=== PATIENT | male | born 1955 | race Two or more races ===

== ENCOUNTER 2023-11-25 10:29 | Outpatient (AMB) | payer BC, SELFPAY ==
--- NOTE | 2023-11-25 11:25 | MHC.OFFWIV ---
Intake Vital Signs 11/25/23 11:38 Height 5 ft 8 in Weight 209 lb BMI 31.8 BP 124/70 Blood Pressure Location Rt brachial Pulse 78 Pulse Source Pulse Oximeter Temp 98.6 F Temp Source Oral Pulse Oximetry (%) 97 Oxygen Delivery Method Room Air Intake Visit Reasons: [employer] BP stuffy nose short of breath [id number] Intake Note: Pt is here c/o stuffy nose, SOB and diarrhea since last night. Patient Tobacco Use Status: Never used Tobacco Allergies No Known Allergies Allergy (Verified 11/25/23 11:25) Do you need a note to return to daycare/school/sports/work: Yes HPI HPI Comments History of Present Illness Details Patient is a 68-year-old male in today for sick visit. He has a past medical history significant for coronary artery bypass graft x4, atrial fibrillation. Patient states that for the past couple of weeks he has had symptoms of sore throat, cough, headache, chest congestion. He states that last night while he was lying in bed he developed some shortness of breath, and had 2 episodes of diarrhea. Patient states that those symptoms have resolved this morning. Denies chest pain, numbness, dyspnea on exertion, nausea, vomiting. PFSH Social History Patient Tobacco Use Status: Never used Tobacco Review of Systems Const Details: Constitutional : No Weight loss, No Fever, No Chills, No Fatigue, No Malaise ENT/Mouth : Admits sore throat, No Rhinorrhea, No ear pain Eyes: No Eye Pain, No Swelling, No Redness Cardiovascular : No Chest Pain, Admits intermittent SOB, No Dyspnea on Exertion, No Orthopnea, No Edema, No Palpitations Respiratory : Admits Cough, No Sputum, No Wheezing Gastrointestinal : No Nausea, No Vomiting, Admits two episodes of Diarrhea, No Constipation, No abdominal Pain, No Hematochezia, No Melena Genitourinary : No Dysuria, No Urinary Frequency, No Hematuria, Musculoskeletal : No joint pain, No Myalgias, No Joint Swelling Skin : No Skin Lesions, No rash Neuro : No Weakness, No Numbness, No Dizziness, No Headache Psych : No Anxiety/Panic, No Depression Heme/Lymph: No Bruising, No Bleeding,No Lymphadenopathy Endocrine : No Polyuria, No Polydipsia All other systems reviewed and are negative Physical Exam Vital Signs: Last Vital Signs Temp 98.6 F 11/25/23 11:38 Pulse 78 11/25/23 11:38 BP 124/70 11/25/23 11:38 Pulse Ox 97 11/25/23 11:38 Oxygen Delivery Method Room Air 11/25/23 11:38 BMI result Body Mass Index 31.8 Vital signs reviewed stable Const Other: Appearance: Alert.? Oriented X3.? No acute distress.? Head: Normocephalic, atraumatic Eyes: Pupils equal, round and reactive to light.? ENT: Pharynx ertythema. TM intact and pearly acevedo. Neck: Normal inspection.? Neck supple.?Full ROM. CVS: EK performed, patient in AFIB.? Pulses normal.? Respiratory: No respiratory distress.? Slight expiratory wheeze.? Neuro: Oriented X 3.? No motor deficit.? No sensory deficit. CN 2-12 intact Assessment & Plan Assessment & Plan (1) Upper respiratory infection: Comment: Patient had BNP, CMP, CBC drawn. Patient had in office EKG which demonstrated AFib, not new. Patient had x-ray of the chest will get back to him with results. Will put patient on prednisone and benzonatate to be taken as directed. Patient has been educated on signs of worsening symptoms when to return to the walk-in or when to present to the ED. 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 Code(s): J06.9 - Acute upper respiratory infection, unspecified Qualifiers: URI type: unspecified URI Qualified Code(s): J06.9 - Acute upper respiratory infection, unspecified Plan: Take your medications as prescribed. If you were prescribed antibiotics today, it is important that you take your medication to their entirety, do not skip any doses, do not finish them early. Follow-up with your primary care provider this week. Return to the emergency department with new or worsening symptoms. Such as fevers, chills, chest pain, shortness of breath, nausea, vomiting, dizziness, headache, vision changes, lethargy In case of emergency call 911 Plan Follow-up with PCP Orders: Orders Complete Blood Count Auto Diff Today Z13.0 - Encounter for screening for diseases of the blood and blood-forming organs and certain disorders involving the immune mechanism Comprehensive Met. Panel Today Z91.89 - Other specified personal risk factors, not elsewhere classified XR chest 2V Today R06.02 - Shortness of breath AMB EKG-In Office Today R06.02 - Shortness of breath SARS-CoV2/FLU/RSV Today J06.9 - Acute upper respiratory infection, unspecified B Type Natriuretic Peptide Today R06.02 - Shortness of breath Medications: New prednisone 20 mg PO BID 10 tabs 0RF benzonatate 100 mg PO BID PRN 20 caps 0RF cough Coding Level of Care Code Est Pt Level 3 (43820) Diagnoses Upper respiratory tract infection, unspecified type J06.9 URI type: unspecified URI Time Spent (min) 25
[2023-11-25 11:38] VITALS: BP 124/70; PULSE 78; TEMP 37; O2SAT 97; BMI 31.8
== END 2023-11-25 12:55 | disposition home or self-care (01) ==
PROVIDERS: Visit Provider Nurse Practitioner Primary Care
DX: J06.9 Acute upper respiratory infection, unspecified (principal)
CPT/HCPCS: 99214

== ENCOUNTER 2023-11-25 12:16 | Outpatient (REF) | payer BC, SELFPAY ==
--- NOTE | ~2023-11-25 | XR_ITS ---
EXAMINATION: XR CHEST CLINICAL INFORMATION: Shortness of breath. COMPARISON: None available. TECHNIQUE: 2 views of the chest were obtained. FINDINGS: No airspace consolidation. No pleural effusion or pneumothorax. Enlarged cardiomediastinal silhouette. Sternal wires and mediastinal surgical clips consistent with prior CABG. No acute osseous abnormality. XR/XR chest 2V IMPRESSION: 1. No acute cardiopulmonary findings. 2. Enlarged cardiomediastinal silhouette.
[2023-11-25 14:57] LABS: Influenza A PCR NEGATIVE (Negative); Influenza B PCR NEGATIVE (Negative); Resp Syncy Virus RNA Qual PCR NEGATIVE (Negative); SARS COV2 PCR INHOUSE NEGATIVE (Negative)
[2023-11-25 16:23] LABS: MANUAL DIFF FLAG NO
[2023-11-25 16:27] LABS: Basophils Percent Auto 0.2 % (0-2); Eosinophils Percent Auto 0.5 % (0-4); Hematocrit 49.7 % (42.0-52.0); Hemoglobin 15.9 g/dl (14.0-18.0); Imm Gran Abs Auto 0.03 X10*3/uL (0.00-0.03); Imm Gran Pct Auto 0.4 % (0.0-0.4); Lymphocytes Absolute Auto 2.2 X10*3/uL (1.2-4.9); Lymphocytes Percent Auto 25.6 % (20-40); Mean Corpuscular Hemoglobin 26.6 pg (27.0-33.0); Mean Corpuscular Volume 83.1 fL (80.0-98.0); Mean Platelet Volume 9.1 fL (9.4-12.4); Monocytes Absolute Auto 0.8 X10*3/uL (0.1-1.2); Monocytes Percent Auto 8.9 % (2-11); Neutrophils Absolute Auto 5.5 x10*3/uL (2.0-8.3); Neutrophils Percent Auto 64.4 % (45-73); Platelet Count 232 X10*3/uL (160-400); Red Blood Count 5.98 X10*6/uL (4.60-5.80); Red Cell Distribution Width 13.6 % (11.0-16.0); White Blood Count 8.5 X10*3/uL (4.8-10.8)
[2023-11-25 16:52] LABS: Alanine Aminotransferase 21 U/L (0-40); Albumin Level 4.2 g/dL (3.5-5.0); Alkaline Phosphatase 45 U/L (39-117); Anion Gap 14 (12-20); Aspartate Amino Transferase 19 U/L (5-37); Bilirubin Total 0.7 mg/dL (0.0-1.0); Blood Urea Nitrogen 9 mg/dL (9-16); Calcium 9.3 mg/dL (8.4-10.2); Carbon Dioxide 28 mmol/L (22-29); Chloride 103 mmol/L (96-108); Estimated Glomerular Filt Rate > 60; Glucose Random 104 mg/dL (60-115); Potassium 4.7 mmol/L (3.3-5.1); Sodium 140 mmol/L (135-145); Total Protein 7.9 g/dL (6.5-8.0)
[2023-11-25 17:01] LABS: B Type Natriuretic Peptide 137 pg/mL (<100)
== END 2023-11-25 12:17 | disposition home or self-care (01) ==
LOC: HO.HMGCX 12:16
PROVIDERS: Visit Provider Nurse Practitioner Primary Care
DX: Z13.0 Encounter for screening for diseases of the blood and blood-forming organs and certain disorders involving the immune mechanism (principal); Z11.52 Encounter for screening for COVID-19; R06.02 Shortness of breath; J06.9 Acute upper respiratory infection, unspecified; Z91.89 Other specified personal risk factors, not elsewhere classified
CPT/HCPCS: 0241U; 36415; 71046; 80053; 83880; 85025